=== PATIENT | female | born 1985 ===

== ENCOUNTER 2016-10-09 10:46 | Emergency (ER) | payer OTHER, SELFPAY ==
[2016-10-09 11:01] VITALS: RESP 20; O2SAT 97
[2016-10-09] MEDS ORDERED: Bacitracin 500 Units/gm Oint Foilpak UD TOP ONE (11:41)
--- NOTE | 2016-10-09 11:52 | C.PDOC ---
History Of Present Illness 31 year old patient presents to the ED complaining of right index finger injury that occurred 3 days ago. Patient states she was at work using a roller and her nail got pulled off. Patient requests a note for work. Patient denies any numbness, weakness, or fever. Time Seen by Provider: 10/09/16 11:02 Chief Complaint (Nursing): Finger,Hand,&Wrist History Per: Patient History/Exam Limitations: no limitations Onset/Duration Of Symptoms: Days (3) Current Symptoms Are (Timing): Still Present Quality: "Pain" Severity: Mild Pain Scale Rating Of: 3 Exacerbating Factor(s): Movement Recent travel outside of the [place]: No Past Medical History Reviewed: Historical Data, Nursing Documentation, Vital Signs Vital Signs: Last Vital Signs Temp 98.2 F 10/09/16 12:21 Pulse 74 10/09/16 12:21 Resp 20 10/09/16 12:21 BP 134/85 10/09/16 12:21 Pulse Ox 97 10/09/16 12:31 Surgical History: - [facility] Procedures INJECT/INFUSE NEC (07/06/14) Family History: States: Unknown Family Hx - Social History Hx Tobacco Use: Yes Hx Alcohol Use: Yes Hx Substance Use: No (DENIED) - Immunization History Hx Tetanus Toxoid Vaccination: No Hx Influenza Vaccination: No Hx Pneumococcal Vaccination: No Review Of Systems Except As Marked, All Systems Reviewed And Found Negative. Constitutional: Negative for: Fever Musculoskeletal: Positive for: Other (right index finger pain and nail avulsion) Neurological: Negative for: Weakness, Numbness Physical Exam - Physical Exam Appears: Non-toxic, No Acute Distress Skin: Warm, Dry Head: Atraumatic, Normacephalic Eye(s): bilateral: Normal Inspection Neck: Normal ROM, Supple Chest: Symmetrical Respiratory: No Accessory Muscle Use Extremity: No Deformity, Other (right 2nd digit: Full nail avulsion, ecchymosis , swelling, unable to flex distally, normal radial pulse) Neurological/Psych: Oriented x3, Normal Speech Gait: Steady ED Course And Treatment O2 Sat by Pulse Oximetry: 97 (room air) Pulse Ox Interpretation: Normal - Other Rad right 2nd digit X-Ray: Read By Radiologist (Melissa Jain) Interpretation: PROCEDURE: Right Index finger radiographs. HISTORY: injury at work. COMPARISON: None. TECHNIQUE: AP radiograph of the right hand, as well as spot oblique and lateral images of index finger were obtained. FINDINGS : RIGHT INDEX FINGER: Normal right index finger, without fracture or focal lesion. Remainder of the right hand (as seen on the AP view) grossly intact. JOINTS: Normal. SOFT TISSUES: Normal. OTHER FINDINGS: None. IMPRESSION: No evidence of acute fracture or dislocation. Medical Decision Making Medical Decision Making: Impression: 31 y/o female with full nail avulsion and injury to right 2nd digit Plan: * Bacitracin * Right 2nd digit x-ray * Reassess and disposition Progress: XRay reviewed by me showing no acute fracture or abnormality Bactiracin applied to area Discussed results with patient and recommend analgesics as needed and to follow up with hand or clinic Disposition Counseled Patient/Family Regarding: Need For Followup, Rx Given - Disposition Referrals: [facility] [Outside] [facility] [Outside] Disposition: HOME/ ROUTINE Disposition Time: 12:14 Condition: STABLE Additional Instructions: Mantenga el rebecca limpia y aplique michael pomada antibitica No hay fractura Usted puede hacer un seguimiento en la clnica para michael evaluacin posterior Instructions: Nail Avulsion (ED) Forms: Work Excuse Print Language: UZBEK - POA Present On Arrival: None - Clinical Impression Clinical Impression: Finger injury, Nail avulsion - PA / [employer]INE [employer] DES[employer] / Resident Statement MD/DO has reviewed & agrees with the documentation as recorded. - Scribe Statement The provider has reviewed the documentation as recorded by the Scribe Otilia Clark All medical record entries made by the Scribe were at my direction and personally dictated by me. I have reviewed the chart and agree that the record accurately reflects my personal performance of the history, physical exam, medical decision making, and the department course for this patient. I have also personally directed, reviewed, and agree with the discharge instructions and disposition.
[2016-10-09] MEDS ORDERED: Bacitracin 500 Units/gm Oint Foilpak UD ONE (12:04)
--- NOTE | 2016-10-09 12:20 | RAD ---
PROCEDURE: Right Index finger radiographs. HISTORY: injury at work COMPARISON: None. TECHNIQUE: AP radiograph of the right hand, as well as spot oblique and lateral images of index finger were obtained. FINDINGS: RIGHT INDEX FINGER: Normal right index finger, without fracture or focal lesion. Remainder of the right hand (as seen on the AP view) grossly intact. JOINTS: Normal. SOFT TISSUES: Normal. OTHER FINDINGS: None. IMPRESSION: No evidence of acute fracture or dislocation.
[2016-10-09 12:49] VITALS: BP 134/85; PULSE 74; TEMP 98.2
== END 2016-10-09 12:20 | disposition home or self-care (01) ==
LOC: C.ER 10:46
DX: S61.300A Unspecified open wound of right index finger with damage to nail, initial encounter (principal); X58.XXXA Exposure to other specified factors, initial encounter; Y92.89 Other specified places as the place of occurrence of the external cause; Y99.0 Civilian activity done for income or pay